=== PATIENT | female | born 1985 | race Two or more races ===

== ENCOUNTER 2017-07-14 21:14 | Emergency (ER) | payer SELFPAY ==
[~2017-07-14] VITALS: Ht 157.5 cm; Wt 53.0 kg
[2017-07-14 21:17] VITALS: BP 119/76
== END 2017-07-15 02:38 | disposition left against medical advice (07) ==
LOC: ER 21:22
DX: Z53.21 Procedure and treatment not carried out due to patient leaving prior to being seen by health care provider (principal)